=== PATIENT | male | born 2000 ===

== ENCOUNTER 2021-07-01 08:39 | Emergency (ER) | payer OTHER ==
[~2021-07-01] VITALS: Ht 182.9 cm; Wt 72.7 kg
[2021-07-01 08:50] VITALS: BP 110/68; TEMP 98.3
[2021-07-01 10:43] VITALS: PULSE 88
== END 2021-07-01 10:43 | disposition home or self-care (01) ==
LOC: COL.ER 08:39
DX: S52.502A Unspecified fracture of the lower end of left radius, initial encounter for closed fracture (principal); W10.8XXA Fall (on) (from) other stairs and steps, initial encounter

== ENCOUNTER 2022-01-20 18:43 | Emergency (ER) | payer OTHER ==
[~2022-01-20] VITALS: Ht 182.9 cm; Wt 72.7 kg
[2022-01-20 18:47] VITALS: TEMP 97.9
[2022-01-20] MEDS ORDERED: FLEXERIL 1010 MG/TAB PO (19:57)
[2022-01-20 20:10] VITALS: BP 121/77; PULSE 74
== END 2022-01-20 20:10 | disposition home or self-care (01) ==
LOC: COL.ER 18:43
DX: M54.50 Low back pain, unspecified (principal); Z28.310 Unvaccinated for COVID-19; X50.0XXA Overexertion from strenuous movement or load, initial encounter; Y93.B9 Activity, other involving muscle strengthening exercises
CPT/HCPCS: J1885; J2360